=== PATIENT | male | born 1995 | race Hispanic/Latino ===

== ENCOUNTER 2022-11-15 16:33 | Emergency (ER) | payer SELFPAY ==
[2022-11-15] MEDS ORDERED: DIPHENHYDRAMINE 50 MG/ML VIAL ONE (16:56)
[2022-11-15] MEDS ORDERED: NA CHLORIDE 0.9% 1,000 ML ONE ×2 (16:57→18:14)
[2022-11-15] MEDS ORDERED: FAMOTIDINE 20 MG/2 ML VIAL IV ONE (16:57)
[2022-11-15] MEDS ORDERED: ONDANSETRON 4 MG/2 ML VIAL ONE ×2 (16:57→20:14)
[2022-11-15 17:17] LABS: Absolute Lymphocytes (CBC) 2.2 K/uL (0.7-4.9); Hematocrit 48.8 % (39.6-49.0); Lymphocytes % 16.3 % (15.3-44.8); MCV 90.4 fL (80-100); MPV 10.7 fL (7.6-11.3); Protime INR 1.15; RBC Red Blood Cell Count 5.39 M/uL (4.33-5.43)
[2022-11-15] MEDS ORDERED: METOCLOPRAMIDE 10 MG/2mL INJ ONE (17:29)
[2022-11-15 17:36] LABS: Albumin 4.7 g/dL (3.4-5.0); Bilirubin Direct 0.2 mg/dL (0-0.2); Bilirubin Total 1.2 mg/dL (0.2-1.0); Potassium 3.2 mEq/L (3.5-5.1)
[2022-11-15] MEDS ORDERED: POTASSIUM 25 MEQ EFFERV TAB ONE (18:14)
[2022-11-15 18:16] LABS: Specific Gravity > 1.030 (1.005-1.030); Urine Bacteria <20 /HPF (<20); Urine Bilirubin NEGATIVE (Negative); Urine Blood Negative (Negative); Urine Clarity Extremely Turbid (Clear); Urine Color Yellow (Yellow); Urine Glucose NEGATIVE (Negative); Urine Mucus 3+ /HPF (None Seen); Urine Protein 2+ (Negative); Urine RBC <5 /HPF (None Seen); Urine Urobilinogen 1+ (Normal); Urine pH 6.5 (5.0-7.0)
[2022-11-15 18:17] LABS: Barbiturates NEGATIVE (NEGATIVE); Benzodiazepines NEGATIVE (NEGATIVE); Cocaine NEGATIVE (NEGATIVE); METHAMPHETAM NEGATIVE (NEGATIVE); Methadone NEGATIVE (NEGATIVE); Opiates NEGATIVE (NEGATIVE); Phencyclidine NEGATIVE (NEGATIVE); THC Cannibis POSITIVE (NEGATIVE)
[2022-11-15] MEDS ORDERED: KETOROLAC 30 MG/ML INJ ONE (18:44)
[2022-11-15] MEDS ORDERED: LORazepam 2 MG/ML VIAL ONE (18:44)
--- NOTE | 2022-11-15 19:31 | RAD REPORT ---
EXAM DESCRIPTION: RAD - Chest Single View - 11/15/2022 7:07 pm CLINICAL HISTORY: SOB;Chest pain Chest pain. COMPARISON: <Comparisons> FINDINGS: Portable technique limits examination quality. The lungs are grossly clear. The heart is normal in size. No displaced fractures. IMPRESSION: No acute intrathoracic process suspected.
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
[2022-11-15 21:04] VITALS: TEMP 98.2
[2022-11-15 21:07] VITALS: BP 172/94; O2SAT 98
--- NOTE | 2022-11-16 13:17 | EKG ---
Test Date: 2022-11-15 Test Time: 16:50:04 Saw Repairer: DANG MEASUREMENT RESULTS: Intervals: Rate: 59 PA: 148 QRSD: 120 QT: 412 QTc: 407 [place]: P: 47 PA: 148 QRS: 56 T: 55 INTERPRETIVE STATEMENTS: Sinus bradycardia with sinus arrhythmia Otherwise normal ECG Compared to ECG 04/15/1996 11:47:00 Sinus rhythm no longer present Electronically Signed On 11-16-22 13:15:38 CDT by Brandon Lepe
== END 2022-11-15 20:17 | disposition home or self-care (01) ==
LOC: ER 16:33
DX: E87.6 Hypokalemia (principal); R11.2 Nausea with vomiting, unspecified; R03.0 Elevated blood-pressure reading, without diagnosis of hypertension
CPT/HCPCS: 36415; 71045; 80048; 80076; 80179; 80307; 81001; 82077; 82550; 84484; 85025; 85610; 93005; 96361; 96374; 96375; 99285; J1200; J2405; J2765; J7030